=== PATIENT | female | born 1975 | race African-American/Black ===

== ENCOUNTER → 2017-03-31 | Outpatient (CLI) | payer OTHER ==
--- NOTE | 2017-03-31 12:11 | US ---
EXAMINATION TYPE: US venous doppler duplex LE DATE OF EXAM: 03/31/2017 11:17 AM COMPARISON: NONE CLINICAL HISTORY: 42-year-old female R60.0 EDEMA. Right ankle swelling. Hx of blood clot x 4 years a go. No blood thinners. SIDE PERFORMED: Bilateral TECHNIQUE: The lower extremity deep venous system is examined utilizing real time linear array sonog raymond with graded compression, doppler sonography and color-flow sonography. FINDINGS: VESSELS IMAGED: External Iliac Vein (EIV) Common Femoral Vein Deep Femoral Vein Greater Saphenous Vein * Femoral Vein Popliteal Vein Small Saphenous Vein * Proximal Calf Veins (* superficial vessels) Right Leg: Linear septation within the common femoral vein extending to the confluence of the SFV an d deep femoral vein. There is some adjacent mural based echogenic material as well. Patency is observ ed. Left Leg: Appears negative for DVT IMPRESSION: 1. No evidence for DVT within the left lower extremity imaged from the groin to the upper calf. 2. On the right, a septation and mural based material within the common femoral vein could represent a web and minimal adherent thrombus relating to nonocclusive old DVT. Patency is maintained.
== END | disposition home or self-care (01) ==
LOC: RADUSWWP 10:37
PROVIDERS: ATTEND Family Medicine
DX: R60.0 Localized edema (principal)
CPT/HCPCS: 93970

== ENCOUNTER → 2020-07-24 | Outpatient (CLI) | payer BC ==
--- NOTE | 2020-07-24 15:08 | MM ---
Reason for exam: screening (asymptomatic). Baseline mammogram. Physical Findings: Nurse did not find any significant physical abnormalities on exam. MG Screening Mammo w CAD Bilateral CC and MLO view(s) were taken. There are scattered fibroglandular densities. Focal asymmetry right CC. These results were verbally communicated with the patient and result sheet given to the patient on 07/24/20. ASSESSMENT: Incomplete: need additional imaging evaluation, BI-RAD 0 RECOMMENDATION: Special view mammogram of the right breast.
--- NOTE | 2020-07-24 15:09 | MM ---
Reason for exam: additional evaluation requested from abnormal screening. Physical Findings: Breast exam preformed at baseline screening. MG Work Up Mamm w CAD RT Spot compression CC and LM view(s) were taken of the right breast. The breast tissue is heterogeneously dense. This may lower the sensitivity of mammography. There is no discrete abnormality including area of concern right CC. These results were verbally communicated with the patient and result sheet given to the patient on 07/24/20. ASSESSMENT: Benign, BI-RAD 2 RECOMMENDATION: Return to routine screening mammogram schedule for both breasts.
== END | disposition home or self-care (01) ==
LOC: RADMAMWWP 13:42
PROVIDERS: ATTEND Family Medicine
DX: Z12.31 Encounter for screening mammogram for malignant neoplasm of breast (principal)
CPT/HCPCS: 77065; 77067

== ENCOUNTER 2021-02-19 17:36 | Emergency (ER) | payer BC ==
--- NOTE | 2021-02-19 18:48 | ED ---
General Adult HPI - General Chief complaint: Shortness of Breath Stated complaint: back pain Time Seen by Provider: 02/19/21 18:38 Source: patient, RN notes reviewed Mode of arrival: ambulatory Limitations: no limitations - History of Present Illness Initial comments: Patient is a pleasant 45-year-old female presenting to the emergency department with concerns for upper neck discomfort, more so on the left. Symptoms have been present for a couple of months. Symptoms worsen with deep breaths. Otherwise no dyspnea. No chest pain. No history of similar symptoms previously. Patient does have a remote history of DVT, approximately 7 years ago. Patient is not currently on any anticoagulant. No leg pain or swelling. - Related Data Home Medications Medication Instructions Recorded Confirmed methocarbamoL [Robaxin] 750 mg PO TID PRN 02/19/21 02/19/21 Previous Rx's Medication Instructions Recorded Cyclobenzaprine [Flexeril] 10 mg PO TID PRN #15 tablet 02/19/21 Allergies Allergy/AdvReac Type Severity Reaction Status Date / Time No Known Allergies Allergy Verified 02/19/21 19:13 Review of Systems ROS Statement: Those systems with pertinent positive or pertinent negative responses have been documented in the HPI. ROS Other: All systems not noted in ROS Statement are negative. Constitutional: Denies: fever Eyes: Denies: eye pain ENT: Denies: ear pain Respiratory: Denies: cough, dyspnea Cardiovascular: Denies: chest pain Endocrine: Denies: fatigue Gastrointestinal: Denies: abdominal pain Genitourinary: Denies: dysuria Musculoskeletal: Reports: as per HPI Skin: Denies: rash Neurological: Denies: weakness Past Medical History Past Medical History: Deep Vein Thrombosis (DVT) Additional Past Medical History / Comment(s): blood clotting disorder History of Any Multi-Drug Resistant Organisms: None Reported Past Surgical History: Hysterectomy Past Psychological History: No Psychological Hx Reported Smoking Status: Current every day smoker Past Alcohol Use History: Occasional General Exam Limitations: no limitations General appearance: alert, in no apparent distress Head exam: Present: normocephalic Eye exam: Present: normal appearance Neck exam: Present: normal inspection Respiratory exam: Present: normal lung sounds bilaterally. Absent: chest wall tenderness Cardiovascular Exam: Present: regular rate, normal rhythm GI/Abdominal exam: Present: soft. Absent: tenderness Extremities exam: Present: normal inspection. Absent: pedal edema, calf tenderness Back exam: Present: tenderness (Mild discomfort left upper back medial to the scapula.) Neurological exam: Present: alert Psychiatric exam: Present: normal affect, normal mood Skin exam: Present: normal color Course Vital Signs 02/19/21 18:17 Temperature 98.9 F Pulse Rate 77 Respiratory 20 Rate Blood Pressure 113/78 O2 Sat by Pulse 99 Oximetry - Reevaluation(s) Reevaluation #1: 02/19/21 18:49 No old EKG available EKG Findings - EKG Comments: EKG Findings:: Normal sinus rhythm with a rate of 77. VT 172. QRS 72. QT or 26. QTc 42. Left axis. Septal Q waves. No acute ST change Medical Decision Making - Medical Decision Making Patient reevaluated and updated. Patient states she was told similar with previous EKG. Patient requesting discharge home. Patient also updated on need for follow-up. - Lab Data Result diagrams: 02/19/21 19:17 02/19/21 19:17 Lab Results 02/19/21 02/19/21 02/19/21 Range/Units 19:17 19:17 19:17 WBC 8.6 (3.8-10.6) k/uL RBC 4.71 (3.80-5.40) m/uL Hgb 13.7 (11.4-16.0) gm/dL Hct 42.1 (34.0-46.0) % MCV 89.3 (80.0-100.0) fL MCH 29.1 (25.0-35.0) pg MCHC 32.6 (31.0-37.0) g/dL RDW 12.9 (11.5-15.5) % Plt Count 282 (150-450) k/uL MPV 6.5 Neutrophils % 61 % Lymphocytes % 29 % Monocytes % 5 % Eosinophils % 3 % Basophils % 1 % Neutrophils # 5.2 (1.3-7.7) k/uL Lymphocytes # 2.5 (1.0-4.8) k/uL Monocytes # 0.4 (0-1.0) k/uL Eosinophils # 0.3 (0-0.7) k/uL Basophils # 0.1 (0-0.2) k/uL PT 10.8 (9.0-12.0) sec INR 1.0 (<1.2) APTT 25.0 (22.0-30.0) sec Sodium 140 (137-145) mmol/L Potassium 3.1 L (3.5-5.1) mmol/L Chloride 108 H (98-107) mmol/L Carbon Dioxide 26 (22-30) mmol/L Anion Gap 6 mmol/L BUN 9 (7-17) mg/dL Creatinine 0.71 (0.52-1.04) mg/dL Est GFR (CKD-EPI)AfAm >90 (>60 ml/min/1.73 sqM) Est GFR (CKD-EPI)NonAf >90 (>60 ml/min/1.73 sqM) Glucose 87 (74-99) mg/dL Calcium 9.5 (8.4-10.2) mg/dL Magnesium 2.1 (1.6-2.3) mg/dL Total Bilirubin 0.6 (0.2-1.3) mg/dL AST 18 (14-36) U/L ALT 13 (4-34) U/L Alkaline Phosphatase 72 (38-126) U/L Troponin I (0.000-0.034) ng/mL Total Protein 6.9 (6.3-8.2) g/dL Albumin 4.0 (3.5-5.0) g/dL 02/19/21 Range/Units 19:17 WBC (3.8-10.6) k/uL RBC (3.80-5.40) m/uL Hgb (11.4-16.0) gm/dL Hct (34.0-46.0) % MCV (80.0-100.0) fL MCH (25.0-35.0) pg MCHC (31.0-37.0) g/dL RDW (11.5-15.5) % Plt Count (150-450) k/uL MPV Neutrophils % % Lymphocytes % % Monocytes % % Eosinophils % % Basophils % % Neutrophils # (1.3-7.7) k/uL Lymphocytes # (1.0-4.8) k/uL Monocytes # (0-1.0) k/uL Eosinophils # (0-0.7) k/uL Basophils # (0-0.2) k/uL PT (9.0-12.0) sec INR (<1.2) APTT (22.0-30.0) sec Sodium (137-145) mmol/L Potassium (3.5-5.1) mmol/L Chloride (98-107) mmol/L Carbon Dioxide (22-30) mmol/L Anion Gap mmol/L BUN (7-17) mg/dL Creatinine (0.52-1.04) mg/dL Est GFR (CKD-EPI)AfAm (>60 ml/min/1.73 sqM) Est GFR (CKD-EPI)NonAf (>60 ml/min/1.73 sqM) Glucose (74-99) mg/dL Calcium (8.4-10.2) mg/dL Magnesium (1.6-2.3) mg/dL Total Bilirubin (0.2-1.3) mg/dL AST (14-36) U/L ALT (4-34) U/L Alkaline Phosphatase (38-126) U/L Troponin I <0.012 (0.000-0.034) ng/mL Total Protein (6.3-8.2) g/dL Albumin (3.5-5.0) g/dL - Radiology Data Radiology results: report reviewed (No evidence of pulmonary embolism) Disposition Clinical Impression: Thoracic back pain Disposition: HOME SELF-CARE Condition: Stable Instructions (If sedation given, give patient instructions): Back Pain (ED) Additional Instructions: Please do follow-up to primary care physician in the beginning of the week for recheck and further evaluation. You should have your potassium level rechecked. Return for increased pain or chest pain, difficulty breathing, worsening or changing symptoms or other concerns. Prescriptions: Cyclobenzaprine [Flexeril] 10 mg PO TID PRN #15 tablet PRN Reason: Pain Is patient prescribed a controlled substance at d/c from ED?: No Referrals: Beau Mcclure MD [Primary Care Provider] - 1-2 days Time of Disposition: 20:05
[2021-02-19 19:28] LABS: Basophils # (A) 0.1 k/uL (0-0.2); Basophils % (A) 1 %; Eosinophils # (A) 0.3 k/uL (0-0.7); Eosinophils % (A) 3 %; HCT 42.1 % (34.0-46.0); HGB 13.7 gm/dL (11.4-16.0); Lymphocytes # (A) 2.5 k/uL (1.0-4.8); Lymphocytes % (A) 29 %; MCH 29.1 pg (25.0-35.0); MCHC 32.6 g/dL (31.0-37.0); MCV 89.3 fL (80.0-100.0); Mean Platelet Volume 6.5; Monocytes # (A) 0.4 k/uL (0-1.0); Monocytes % (A) 5 %; Neutrophils # (A) 5.2 k/uL (1.3-7.7); Neutrophils % (A) 61 %; Platelet Count 282 k/uL (150-450); RBC 4.71 m/uL (3.80-5.40); RDW 12.9 % (11.5-15.5); WBC 8.6 k/uL (3.8-10.6)
[2021-02-19 19:36] LABS: ALT 13 U/L (4-34); AST 18 U/L (14-36); African American GFR (CKD) >90 (>60 ml/min/1.73 sqM); Alkaline Phosphatase 72 U/L (38-126); Anion Gap 6 mmol/L; Blood Urea Nitrogen 9 mg/dL (7-17); Calcium 9.5 mg/dL (8.4-10.2); Carbon Dioxide 26 mmol/L (22-30); Chloride 108 mmol/L (98-107); Glucose 87 mg/dL (74-99); Magnesium 2.1 mg/dL (1.6-2.3); Non-African American GFR(CKD) >90 (>60 ml/min/1.73 sqM); Potassium 3.1 mmol/L (3.5-5.1); Sodium 140 mmol/L (137-145); Total Bilirubin 0.6 mg/dL (0.2-1.3); Total Protein 6.9 g/dL (6.3-8.2)
[2021-02-19 19:48] LABS: Prothrombin Time 10.8 sec (9.0-12.0)
--- NOTE | 2021-02-19 19:53 | CT ---
EXAMINATION TYPE: CT angio chest DATE OF EXAM: 02/19/2021 COMPARISON: None HISTORY: c/o posterior chest pain, hx of DVT CT DLP: 321.5 mGycm Automated exposure control for dose reduction was used. CONTRAST: Performed with IV Contrast, patient injected with 74cc mL of Isovue 370. Images obtained from the thoracic inlet to the diaphragm with IV contrast. There are 3-D post process ed images. There is some mild reticular density in the right upper lobe and at the posterior lung bases. There i s no pulmonary mass. There is no pleural effusion. Heart size is normal. There is no pericardial effu milvia. There is normal contrast opacification of the pulmonary arteries. There are no filling defects. There are no hilar masses. There is no mediastinal adenopathy. Thoracic aorta appears intact. There is no aneurysm or dissection. The ascending aorta measures 3.4 cm. Bony thorax is intact. Sternum is intact. IMPRESSION: No evidence of pulmonary embolism. Mild subsegmental atelectasis in both lungs. No suspicious pulmonary mass.
[2021-02-19] MEDS: POTASSIUM CHLORIDE ER 20 MEQ TAB.ER PO STA (20:32)
[2021-02-19 20:50] VITALS: BP 116/81; PULSE 80; RESP 18; TEMP 98.7
== END 2021-02-19 20:40 | disposition home or self-care (01) ==
LOC: EC 17:36
DX: M54.6 Pain in thoracic spine (principal); F17.200 Nicotine dependence, unspecified, uncomplicated; Z86.718 Personal history of other venous thrombosis and embolism; Z90.710 Acquired absence of both cervix and uterus
CPT/HCPCS: 36415; 93005; 80053; 83735; 84484; 85025; 85610; 85730; 71275; 99284; Q9967

== ENCOUNTER → 2022-07-06 | Outpatient (CLI) | payer BC ==
--- NOTE | 2022-07-06 13:39 | CT ---
EXAMINATION TYPE: CT abdomen pelvis wo con DATE OF EXAM: 07/06/2022 COMPARISON: Chest 02/19/2021 HISTORY: 47-year-old female 1 0.9, Right sided abdominal pain x [address] DLP: 835 mGycm. Automated exposure control for dose reduction was used. TECHNIQUE: Contiguous axial scanning of the abdomen and pelvis without IV contrast. Coronal and sagit carla reconstructions performed. FINDINGS: Heart upper limits of normal in size. Small anterior basilar pericardial fluid. There is a 1.4 cm left basilar pulmonary nodule. Unchanged from 02/19/2021. Noncontrast appearance of the liver, gallbladder, adrenal glands, spleen, and pancreas show no gross abnormality. There is a 1.8 cm hypodensity mid left kidney (unchanged from 02/19/2021) and 8 mm cortical hypodensity posterior right kidney. No dilated small bowel, free fluid, or free air. No mesenteric or retroperitoneal lymphadenopathy see n. Normal appendix. Oral contrast progressed to the splenic flexure. Mild overall stool burden. No peric olonic inflammatory change. Mildly redundant sigmoid colon. Bladder is urine distended. Uterus not well seen, probably surgically absent. Possible 1.9 cm cyst of the left ovary. Left ovary estimated to measure 2.3 x 4.4 x 2.7 cm for a volu me of 13.7 mL. No abnormal fluid collection in the pelvis or pelvic lymphadenopathy clearly seen. Bones: Facet arthropathy lower lumbar spine. IMPRESSION: 1. Normal appendix. 2. A 1.4 cm left basilar pulmonary nodule remains unchanged from 02/19/2021 suggesting a benign etiolo gy. Recommend annual surveillance exam. 3. Limited due to lack of IV contrast. There appears to be a 1.9 cm cyst of the left ovary that coul d represent a dominant follicle or functional cyst. Lobulated prominence of the right ovary but with a normal size of 13.7 mL. 4. No acute process is seen.
== END | disposition home or self-care (01) ==
LOC: RADCTMAIN 11:18
PROVIDERS: ATTEND Family Medicine
DX: R91.1 Solitary pulmonary nodule (principal); R10.9 Unspecified abdominal pain
CPT/HCPCS: 74176

== ENCOUNTER → 2024-04-11 | Outpatient (CLI) | payer BC ==
--- NOTE | 2024-04-12 09:51 | MM ---
Reason for Exam: Screening (asymptomatic). Last mammogram was performed 3 year(s) and 8 month(s) ago. Patient History: Menarche at age 10. First Full-Term at age 20. Hysterectomy at age 39. Risk Values: Jenny 5 year model risk: 1.2%. NCI Lifetime model risk: 8.5%. Prior Study Comparison: 07/24/2020 Bilateral Screening Mammogram, [facility]. 07/24/2020 Right Diagnostic Mammogram, [facility]. Tissue Density: There are scattered areas of fibroglandular density. Findings: Analyzed By CAD. There is no suspicious group of microcalcifications or new suspicious mass in either breast. Overall Assessment: Negative, BI-RAD 1 Management: Screening Mammogram of both breasts in 1 year. . Patient should continue monthly self-breast exams. A clinical breast exam by your physician is recommended on an annual basis. This exam should not preclude additional follow-up of suspicious palpable abnormalities. Note on Jenny scores and lifetime risk: 1. A Jenny score greater than 3% is considered moderate risk. If this is the case, consider specialist referral to assess eligibility for a risk reducing agent. 2. If overall lifetime risk for the development of breast cancer is 20% or higher, the patient may qualify for future screening with alternating mammogram and breast MRI. Electronically signed and approved by: Markos Stone M.D. Radiologis
== END | disposition home or self-care (01) ==
LOC: RADMAMWWP 14:23
PROVIDERS: ATTEND Family Medicine
DX: Z12.31 Encounter for screening mammogram for malignant neoplasm of breast (principal); R92.323 Mammographic fibroglandular density, bilateral breasts
CPT/HCPCS: 77067